=== PATIENT | female | born 2000 | race Caucasian/White ===

== ENCOUNTER 2021-06-29 23:42 | Emergency (ER) | payer BC ==
[~2021-06-29 23:42] MED LIST: ONDA4TAB8 PO
[2021-06-30 01:00] VITALS: BP 91/76
[2021-06-30 01:29] LABS: BILIRUBIN,URINE NEGATIVE (NEGATIVE); CLARITY,URINE SL CLOUDY; COLOR,URINE YELLOW; GLUCOSE, URINE (UA) NEGATIVE (NEGATIVE); KETONES,URINE NEGATIVE (NEGATIVE); LEUKOCYTE ESTERASE ,URINE NEGATIVE (NEGATIVE); NITRITE,URINE NEGATIVE (NEGATIVE); PH,URINE 6.5 (5-9); PROTEIN,URINE NEGATIVE (NEGATIVE)
--- NOTE | 2021-06-30 01:29 | ED General ---
General Chief Complaint: Abdominal/GI Problems Stated Complaint: CHILLS,NAUSEA,DRY HEAVES,CRUZ,WEAKNESS Source of Information: Patient Exam Limitations: No Limitations (MARTIR MCHUGH STUDENT) History of Present Illness Date Seen by Provider: Jun 30, 2021 Time Seen by Provider: 01:00 Initial Comments Pt presents to ED via private conveyance with complaints of intermittent nausea, headache and malaise. She states that she ate some chicken tenders on Tuesday and felt sick afterwards with 1x episode of vomiting. She has been nauseated intermittently since onset but no further episodes of vomiting. She has also been experiencing mild headaches localized to her forehead. She also has had malaise since onset of symptoms. She has been eating/drinking without issue, last bm yesterday described as normal. Denies dysuria/hematuria. Started menstrual cycle yesterday, denies dysmenorrhea/menorrhagia. She states that she does feel like her symptoms have been improving since Tuesday. Denies chest pain, abd pain, SOB, fevers/chills. Timing/Duration: 2-3 Days Severity: Mild Modifying Factors: improves with Medication (zofran for nausea) Associated Systoms: No Chest Pain, No Cough, No Fever/Chills, No Headaches, No Loss of Appetite; Nausea/Vomiting; No Shortness of Air; Weakness (MARTIR MCHUGH STUDENT) Allergies and Home Medications Allergies Coded Allergies: No Known Drug Allergies (Unverified , 12/23/15) Home Medications Ondansetron 4 Mg Tab.rapdis, 4 MG PO Q4H Prescribed by: SUKHWINDER MARIE on 12/23/151922 Ondansetron 4 Mg Tab.rapdis, 4 MG PO Q6H PRN for NAUSEA/VOMITING Prescribed by: ELVA WALTER on 06/30/21 0203 Patient Home Medication List Home Medication List Reviewed: Yes (MARTIR MCHUGH STUDENT) Review of Systems Review of Systems Constitutional: No chills, No fever; malaise, weakness EENTM: No hearing loss, No blurred vision, No vision loss Respiratory: No cough, No short of breath Cardiovascular: No chest pain, No edema, No palpitations Gastrointestinal: No abdominal pain, No constipation, No diarrhea, No dysphagia, No hematemesis; nausea, vomiting Genitourinary: No dysuria, No frequency, No hematuria LMP: Jun 29, 2021 Musculoskeletal: No back pain, No joint pain Skin: No change in color, No change in hair/nails Psychiatric/Neurological: Headache; Denies Numbness, Denies Paresthesia, Denies Tingling (MARTIR MCHUGH) All Other Systems Reviewed Negative Unless Noted: Yes (MARTIR MCHUGH) Past Pgpbueh-Iziqmz-Kjdxrs Hx Patient Social History Tobacco Use?: No Substance use?: No Alcohol Use?: No Pt feels they are or have been: No (MARTIR MCHUGH) Tobacco Use?: No Use of E-Cig and/or Vaping dev: No Substance use?: No Alcohol Use?: No (ELVA WALTER) Seasonal Allergies Seasonal Allergies: No (MARTIR MCHUGH) Past Medical History Surgery/Hospitalization HX: ORAL SX Reproductive Disorders: No (MARTIR MCHUGH) Physical Exam Vital Signs Vital Signs - First Documented 06/30/21 01:00 Temp 36.9 Pulse 81 Resp 16 B/P (MAP) 91/76 (81) Pulse Ox 98 O2 Delivery Room Air (ELVA WALTER) Vital Signs Capillary Refill : (MARTIR MCHUGH) Height, Weight, BMI Height: 5'7" Weight: 106lbs. oz. 48.379266ef; 16.60 BMI Method:Estimated General Appearance: No Apparent Distress, WD/WN Eyes: Bilateral Eye Normal Inspection, Bilateral Eye PERRL, Bilateral Eye EOMI HEENT: PERRL/EOMI, TMs Normal, Normal ENT Inspection, Pharynx Normal Neck: Full Range of Motion, Normal Inspection, Non Tender, Supple Respiratory: Chest Non Tender, Lungs Clear, Normal Breath Sounds, No Accessory Muscle Use, No Respiratory Distress Cardiovascular: Regular Rate, Rhythm, No Edema, No Murmur, Normal Peripheral Pulses Gastrointestinal: Normal Bowel Sounds, Non Tender, Soft Rectal: Deferred Back: Normal Inspection, No CVA Tenderness, No Vertebral Tenderness Extremity: Normal Capillary Refill, Normal Inspection, Normal Range of Motion, Non Tender, No Pedal Edema Neurologic/Psychiatric: Alert, Oriented x3, No Motor/Sensory Deficits, Normal Mood/Affect Skin: Normal Color, Warm/Dry Lymphatic: No Adenopathy (MARTIR MCHUGH) Progress/Results/Core Measures Suspected Sepsis SIRS Temperature: Pulse: Respiratory Rate: Blood Pressure / Mean: (MARTIR MCHUGH MED STUDENT) Results/Orders Lab Results Laboratory Tests Test 06/30/21 01:08 06/30/21 01:22 Range/Units Influenza Type A (RT-PCR) Not Detected Not Detecte Influenza Type B (RT-PCR) Not Detected Not Detecte SARS-CoV-2 RNA (RT-PCR) Not Detected Not Detecte Urine Color YELLOW Urine Clarity SL CLOUDY Urine pH 6.5 5-9 Urine Specific [place] 1.010 L 1.016-1.022 Urine Protein NEGATIVE NEGATIVE Urine Glucose (UA) NEGATIVE NEGATIVE Urine Ketones NEGATIVE NEGATIVE Urine Nitrite NEGATIVE NEGATIVE Urine Bilirubin NEGATIVE NEGATIVE Urine Urobilinogen 0.2 < = 1.0 MG/DL Urine Leukocyte Esterase NEGATIVE NEGATIVE Urine RBC (Auto) NEGATIVE NEGATIVE Urine RBC NONE /HPF Urine WBC NONE /HPF Urine Squamous Epithelial Cells 2-5 /HPF Urine Crystals NONE /LPF Urine Bacteria NEGATIVE /HPF Urine Casts NONE /LPF Urine Mucus NEGATIVE /LPF Urine Culture Indicated NO (ELVA WALTER) My Orders Orders - ELVA WALTER Covid 19 Inhouse Test (06/30/21 01:06) Influenza A And B By Pcr (06/30/21 01:06) Ua Culture If Indicated (06/30/21 01:06) Urine Bedside (06/30/21 01:06) (ELVA WALTER) Vital Signs/I&O 06/30/21 01:00 Temp 36.9 Pulse 81 Resp 16 B/P (MAP) 91/76 (81) Pulse Ox 98 O2 Delivery Room Air (ELVA WALTER) Vital Signs/I&O Capillary Refill : (MARTIR MCHUGH MED STUDENT) Progress Note : Time: 01:59 Progress Note Patient is continued to have no symptoms since she arrived. She has clinically aseptic vital signs and a nonacute abdomen on examination. We discussed doing further work-up with blood work versus just observing her with some nausea medicine. She thinks she ate some bad chicken wings and since her symptoms are progressively getting better this provider agrees that it is reasonable to go home at this time. I attest that I saw this patient alongside the medical student and agree with his documented history, physical exam and review of systems except as otherwise noted. (ELVA WALTER) Departure Impression Primary Impression: Gastroenteritis Disposition: 01 HOME, SELF-CARE Condition: Stable Departure-Patient Inst. Decision time for Depature: 02:00 (ELVA WALTER) Referrals: LOBITO ANAYA MD (PCP/Family) Primary Care Physician Patient Instructions: [id number] Add. Discharge Instructions: You have an upset stomach either from something you ate that was contaminated or a virus. Typically these will resolve over a few days. Zofran 1 tablet every 6 hours as necessary. Return to the ER if you develop a fever especially above 102.5, intractable vomiting, dehydration or severe, intractable pain. Tylenol 1000 mg every 8 hours as necessary for pain. Tums, Rolaids, Maalox etc. as necessary for stomach pain. All discharge instructions reviewed with patient and/or family. Voiced understanding. Scripts Ondansetron (Ondansetron Odt) 4 Mg Tab.rapdis 4 MG PO Q6H PRN for NAUSEA/VOMITING, #8 TAB 0 Refills Prov: ELVA WALTER 06/30/21 Work/School Note: School/Childcare Release Date Seen in the Emergency Department: Jun 30, 2021 Time Dismissed from Emergency Department: 02:03 Return to School: Jul 01, 2021 Restrictions: No Restrictions Other Restrictions Listed Below: Please Excuse 06/29/21. MARTIR MCHUGH MED STUDENT Jun 30, 2021 01:28 ELVA WALTER Jun 30, 2021 02:04
[2021-06-30 01:34] LABS: BACTERIA,URINE NEGATIVE /HPF
[2021-06-30] MEDS ORDERED: ONDA4TAB11 PO (02:03)
== END 2021-06-30 02:10 | disposition home or self-care (01) ==
LOC: EDUNIT# 23:42 → ER 23:50
DX: K52.9 Noninfective gastroenteritis and colitis, unspecified (principal); Z20.822 Contact with and (suspected) exposure to COVID-19
CPT/HCPCS: 81000; 84703; 87636

== ENCOUNTER 2021-08-09 02:50 | Emergency (ER) | payer BC ==
[~2021-08-09] VITALS: Ht 170 cm; Wt 54.4 kg
[~2021-08-09 02:50] MED LIST changes: +ONDA4TAB11 PO
[2021-08-09] MEDS ORDERED: ONDANSETRON 4 MG/2 ML (SDV) Z0FRAN IVP ONE (04:00)
[2021-08-09] MEDS ORDERED: KETOROLAC 30 MG/ML VIAL IVP ONE (04:00)
[2021-08-09] MEDS ORDERED: LACTATED RINGERS 1,000 ML IV ONE ×2 (04:00→07:00)
[2021-08-09 04:13] LABS: BILIRUBIN,URINE NEGATIVE (NEGATIVE); CLARITY,URINE CLEAR; COLOR,URINE YELLOW; GLUCOSE, URINE (UA) NEGATIVE (NEGATIVE); KETONES,URINE 2+ (NEGATIVE); LEUKOCYTE ESTERASE ,URINE NEGATIVE (NEGATIVE); NITRITE,URINE NEGATIVE (NEGATIVE); PROTEIN,URINE NEGATIVE (NEGATIVE)
[2021-08-09 04:25] LABS: BASOPHILS % (AUTO) 1 % (0-10); EOSINOPHILS % (AUTO) 0 % (0-10); HEMATOCRIT 41 % (35-52); HEMOGLOBIN 14.2 g/dL (11.5-16.0); LYMPHOCYTES # (AUTO) 0.3 10^3/uL (1.0-4.0); LYMPHOCYTES % (AUTO) 9 % (12-44); MEAN CORPUSCULAR HEMOGLOBIN 31 pg (25-34); MEAN CORPUSCULAR HGB CONC 34 g/dL (32-36); MEAN CORPUSCULAR VOLUME 89 fL (80-99); MONOCYTES # (AUTO) 0.7 10^3/uL (0.0-1.0); MONOCYTES % (AUTO) 24 % (0-12); NEUTROPHILS % (AUTO) 65 % (42-75); PLATELET COUNT 224 10^3/uL (130-400)
[2021-08-09 04:28] LABS: BACTERIA,URINE NEGATIVE /HPF
[2021-08-09 04:37] LABS: ALBUMIN 4.1 GM/DL (3.2-4.5); POTASSIUM 3.7 MMOL/L (3.6-5.0)
[2021-08-09 04:38] LABS: CALCIUM 9.5 MG/DL (8.5-10.1)
[2021-08-09 04:39] LABS: TOTAL PROTEIN 7.6 GM/DL (6.4-8.2)
[2021-08-09 04:41] LABS: BILIRUBIN,TOTAL 0.3 MG/DL (0.1-1.0)
--- NOTE | 2021-08-09 04:41 | ED Abdominal Pain ---
General Chief Complaint: Abdominal/GI Problems Stated Complaint: ABD PAIN Nursing Triage Note: PT ARRIVED TO ER VIA POV WITH MOTHER FROM HOME. PT REPORTS LOWER ABDOMINAL PAIN IN THE LRQ AT A 5/10 AND DENIES RADIATION SINCE THIS EVENING. Source of Information: Patient, Family (MOM) (SUKHWINDER MARIE DO) History of Present Illness Date Seen by Provider: Aug 09, 2021 Time Seen by Provider: 03:40 Initial Comments PT ARRIVES VIA POV FROM HOME WITH MOTHER C/O RIGHT UPPER QUADRANT PAIN STATES PAIN WOKE HER UP AT 0130 WENT TO BED AROUND 0030 AND FELT FINE NO RADIATION OF PAIN PAIN IS WORSE WITH WALKING OR ANY MOVEMENT + NAUSEA, NO VOMITING HAS HAD CONSTIPATION THE LAST FEW DAYS, BUT DID HAVE A BM EARLIER TODAY NO URINARY SYMPTOMS PT STATES SHE "FELT HOT" EARLIER, BUT DID NOT TAKE TEMP. TOOK IBUPROFEN 200 MG AND THE SENSATION OF FEELING "HOT" WENT AWAY AFTER ABOUT 1 1/2 HOURS PT ALSO TOOK THE IBUPROFEN FOR A HEADACHE, WHICH DID IMPROVE NO IMPROVEMENT IN ABDOMINAL PAIN WITH IBUPROFEN LAST ATE AROUND 1700--HAD PIZZA. NO SICK CONTACTS OR SUSPICIOUS FOODS NO HISTORY OF SIMILAR NO PRIOR GI OR PROBLEMS AND NO ABDOMINAL SURGERIES LMP--BEGAN 08/02/21, ENDED 08/05/21. NORMAL. ON OCP'S PT HAS HAD MODERNA COVID-19 VACCINES X 2--LAST ONE 02/2021 PCP: DR. QUIROS PT IS ALSO A [employer] STUDENT (FRANKSUKHWINDER K ) Allergies and Home Medications Allergies Coded Allergies: No Known Drug Allergies (Unverified , 12/23/15) Patient Home Medication List Home Medication List Reviewed: Yes (ELVA WALTER) Ondansetron (Zofran Odt) 4 Mg Tab.rapdis, 4 MG PO Q4H Prescribed by: SUKHWINDER MARIE on 12/23/151922 Ondansetron (Ondansetron Odt) 4 Mg Tab.rapdis, 4 MG PO Q6H PRN for NAUSEA/VOMITING Prescribed by: ELVA WALTER on 06/30/21 0203 Review of Systems Review of Systems Constitutional: see HPI Respiratory: No Symptoms Reported Cardiovascular: No Symptoms Reported Gastrointestinal: See HPI, Abdominal Pain, Constipated, Nausea; Denies Vomiting Genitourinary: No Symptoms Reported Musculoskeletal: no symptoms reported; No back pain Skin: no symptoms reported Psychiatric/Neurological: See HPI, Headache Endocrine: No Symptoms Reported Hematologic/Lymphatic: No Symptoms Reported (SUKHWINDER MARIE DO) Past Pbfayrx-Prfqzn-Vktgmn Hx Patient Social History Tobacco Use?: No Substance use?: No Alcohol Use?: No (SUKHWINDER MARIE DO) Seasonal Allergies Seasonal Allergies: No (FRANK,SUKHWINDER Henrique THAKUR) Past Medical History Surgery/Hospitalization HX: ORAL SX Surgeries: Yes (ORAL SURGERY) Respiratory: No Cardiac: No Neurological: No : No Last Menstrual Period: Aug 02, 2021 Reproductive Disorders: No Genitourinary: No Gastrointestinal: No Musculoskeletal: No Endocrine: No HEENT: No Cancer: No Psychosocial: No Integumentary: No Blood Disorders: No (SUKHWINDER MARIE DO) Physical Exam Vital Signs Vital Signs - First Documented 08/09/21 03:35 Temp 37.4 Pulse 115 Resp 18 B/P (MAP) 115/81 (92) Pulse Ox 94 O2 Delivery Room Air (ELVA WALTER) Vital Signs Capillary Refill : Less Than 3 Seconds (SUKHWINDER MARIE ) Height/Weight/BMI Height: 5'7" Weight: 106lbs. oz. 48.589545mh; 18.00 BMI Method:Estimated General Appearance: WD/WN, no apparent distress, thin, other (LOOKS U NCOMFORTABLE, HIPS AND KNEES FLEXED AND SPLINTING HER ABDOMEN OVER A BUNDLED UP BLANKET. ) Neck: normal inspection Respiratory: normal breath sounds, no respiratory distress, no accessory muscle use Cardiovascular: regular rate, rhythm, no murmur Gastrointestinal: normal bowel sounds, soft, no organomegaly, no pulsatile mass; No distended; guarding, rebound, tenderness; No hernia, No mass; other (DIFFUSE RIGHT SIDED ABDOMINAL TENDERNESS. EQUIVOCAL REBOUND. + PSOAS, + OBTURATOR, NEGATIVE ROVSING'S, NEGATIVE HEEL TAP. ) Extremities: normal inspection Back: normal inspection, no CVA tenderness Neurologic/Psychiatric: extension course coordinator II-XII nml as tested, no motor/sensory deficits, alert, oriented x 3 Skin: normal color, warm/dry; No rash (FRANKSUKHWINDER Duenas ) Progress/Results/Core Measures Results/Orders Lab Results Laboratory Tests Test 08/09/21 04:06 08/09/21 04:10 Range/Units Urine Color YELLOW Urine Clarity CLEAR Urine pH 7.0 5-9 Urine Specific [place] 1.010 L 1.016-1.022 Urine Protein NEGATIVE NEGATIVE Urine Glucose (UA) NEGATIVE NEGATIVE Urine Ketones 2+ H NEGATIVE Urine Nitrite NEGATIVE NEGATIVE Urine Bilirubin NEGATIVE NEGATIVE Urine Urobilinogen 0.2 < = 1.0 MG/DL Urine Leukocyte Esterase NEGATIVE NEGATIVE Urine RBC (Auto) NEGATIVE NEGATIVE Urine RBC NONE /HPF Urine WBC NONE /HPF Urine Squamous Epithelial Cells 2-5 /HPF Urine Crystals NONE /LPF Urine Bacteria NEGATIVE /HPF Urine Casts NONE /LPF Urine Mucus MODERATE H /LPF Urine Culture Indicated NO White Blood Count 3.0 L 4.3-11.0 10^3/uL Red Blood Count 4.66 3.80-5.11 10^6/uL Hemoglobin 14.2 11.5-16.0 g/dL Hematocrit 41 35-52 % Mean Corpuscular Volume 89 80-99 fL Mean Corpuscular Hemoglobin 31 25-34 pg Mean Corpuscular Hemoglobin Concent 34 32-36 g/dL Red Cell Distribution Width 12.2 10.0-14.5 % Platelet Count 224 130-400 10^3/uL Mean Platelet Volume 10.0 9.0-12.2 fL Immature Granulocyte % (Auto) 0 % Neutrophils (%) (Auto) 65 42-75 % Lymphocytes (%) (Auto) 9 L 12-44 % Monocytes (%) (Auto) 24 H 0-12 % Eosinophils (%) (Auto) 0 0-10 % Basophils (%) (Auto) 1 0-10 % Neutrophils # (Auto) 2.0 1.8-7.8 10^3/uL Lymphocytes # (Auto) 0.3 L 1.0-4.0 10^3/uL Monocytes # (Auto) 0.7 0.0-1.0 10^3/uL Eosinophils # (Auto) 0.0 0.0-0.3 10^3/uL Basophils # (Auto) 0.0 0.0-0.1 10^3/uL Immature Granulocyte # (Auto) 0.0 0.0-0.1 10^3/uL Neutrophils % (Manual) 67 % Lymphocytes % (Manual) 6 % Monocytes % (Manual) 23 % Band Neutrophils 4 % Blood Morphology Comment NORMAL Sodium Level 139 135-145 MMOL/L Potassium Level 3.7 3.6-5.0 MMOL/L Chloride Level 106 98-107 MMOL/L Carbon Dioxide Level 19 L 21-32 MMOL/L Anion Gap 14 5-14 MMOL/L Blood Urea Nitrogen 8 7-18 MG/DL Creatinine 0.82 0.60-1.30 MG/DL Estimat Glomerular Filtration Rate 87 BUN/Creatinine Ratio 10 Glucose Level 105 70-105 MG/DL Calcium Level 9.5 8.5-10.1 MG/DL Corrected Calcium 9.4 8.5-10.1 MG/DL Total Bilirubin 0.3 0.1-1.0 MG/DL Aspartate Amino Transf (AST/SGOT) 20 5-34 U/L Alanine Aminotransferase (ALT/SGPT) 25 0-55 U/L Alkaline Phosphatase 102 40-136 U/L Total Protein 7.6 6.4-8.2 GM/DL Albumin 4.1 3.2-4.5 GM/DL Amylase Level 71 25-125 U/L Lipase 35 8-78 U/L (ELVA WALTER) Medications Given in ED Current Medications Medications Dose Ordered Sig/Alana Route Start Time Stop Time Status Last Admin Dose Admin Lactated Ringer's 1,000 ml @ 0 mls/hr Q0M ONCE IV 08/09/21 07:00 08/09/21 07:01 DC 08/09/21 07:01 999 MLS/HR (ELVA WALTER) Vital Signs/I&O 08/09/21 08/09/21 03:35 10:05 Temp 37.4 Pulse 115 94 Resp 18 18 B/P (MAP) 115/81 (92) 118/85 Pulse Ox 94 97 O2 Delivery Room Air Room Air (ELVA WALTER) Blood Pressure Mean: 92 Progress Progress Note : Progress Note GIVEN IV FLUIDS, TORADOL AND ZOFRAN WITH IMPROVEMENT IN SYMPTOMS CARE TURNED OVER TO DR. WALTER AT SHIFT CHANGE CT PENDING, IF CT IS NEGATIVE, WILL OBTAIN PELVIC ULTRASOUND (SUKHWINDER MARIE DO) Progress Note : Progress Note 0600: Assumed care of the patient at shift change. She is resting comfortably. CT was unable to find pathology. Plan to get ultrasound of the pelvis. (ELVA WALTER) Diagnostic Imaging Diagonstic Imaging: CT Plain Films/CT/US/NM/MRI: abdomen, pelvis Comments [facility] [place] NAME: BRIAN VALVERDE [facility] REC#: [id number] PT STATUS: REG ER : 2000 PHYSICIAN: SUKHWINDER MARIE DO ADMIT DATE: 08/09/21/ER Draft Date of Exam:08/09/21 CT ABD/PELV W (APPENDICITIS) PROCEDURE: CT abdomen and pelvis with contrast, rule out appendicitis. TECHNIQUE: Multiple contiguous axial images were obtained through the abdomen and pelvis after the administration of intravenous contrast. All CT scans use one or more of the following dose optimizing techniques: automated exposure control, MA and/or KvP adjustment based on patient size and exam type or iterative reconstruction. Indication: Right lower quadrant pain. Comparison: None. Discussion: Lung bases are well-aerated. Normal heart size. No pleural or pericardial fluid. The liver, gallbladder, pancreas, stomach, spleen, adrenal glands, kidneys, aorta, bladder, and uterus are unremarkable. Prominent follicular activity noted within the right ovary which is statistically benign though could account for pain. No evidence of appendicitis. Mild constipation. No abnormal small bowel loops. No pneumatosis or pneumoperitoneum. No acute osseous abnormality. Impression: 1. No evidence for appendicitis. 2. Follicular activity noted within the right ovary. If further characterization of this area is required recommend ultrasound. Dictated on workstation # [id number] Dict: 08/09/21627 Trans: 08/09/2138 CV [id number] Interpreted by: RUTH FRANCO MD Electronically signed by: Reviewed: Reviewed by Pr Diagonstic Imaging: Xray Plain Films/CT/US/NM/MRI: abdomen, pelvis Comments [facility] [place] NAME: BRIAN VALVERDE [facility] REC#: [id number] PT STATUS: REG ER : 2000 PHYSICIAN: SUKHWINDER MARIE DO ADMIT DATE: 08/09/21/ER Draft Date of Exam:08/09/21 ABDOMEN/KUB 1VIEW INDICATION: Right lower quadrant abdominal pain. TECHNIQUE: Single supine view of the abdomen 5:08 AM CORRELATION STUDY: None FINDINGS: Imaging of the abdomen demonstrates the bowel gas pattern to be unremarkable and without evidence for obstruction. No significant differential air-fluid levels. No evidence for free air. No pathologic intraabdominal calcifications. IMPRESSION: 1. Unremarkable supine view abdomen. Dictated on workstation # [id number] Dict: 08/09/21627 Trans: 08/09/21628 DO [id number] Interpreted by: MAGNOLIA ALCALA DO Electronically signed by: Reviewed: Reviewed by Me Diagonstic Imaging: Ultrasound Plain Films/CT/US/NM/MRI: abdomen, pelvis Comments [facility] [place] NAME: BRIAN VALVERDE [facility] REC#: [id number] PT STATUS: REG ER : 2000 PHYSICIAN: SUKHWINDER MARIE DO ADMIT DATE: 08/09/21/ER Draft Date of Exam:08/09/21 US PELVIC (NON OB)[id number] PROCEDURE: US PELVIC (NON OB) TECHNIQUE: Multiple real-time grayscale images were obtained over the pelvis in various projections transabdominally. INDICATION: Right lower quadrant pain COMPARISON: CT from the same date FINDINGS: The uterus is within normal limits in size. No focal uterine mass. Endometrium is within normal limits measuring 0.9 cm. The right ovary measures 2.5 x 2.1 x 1.8 cm. The right ovary is grossly unremarkable. Vascular flow seen within the right ovary. The left ovary measures 2.4 x 2.1 x 1.3 cm. Vascular flow seen within the left ovary. A blind-ending tubular structure with a bowel echo signature is present within the right lower quadrant measuring up to 0.3 cm. No adjacent inflammatory changes or fluid. IMPRESSION: Unremarkable examination. What is felt to relate to the appendix within the right lower quadrant appears unremarkable. Dictated on workstation # [id number] Dict: 08/09/21845 Trans: 08/09/21900 CVB [id number] Interpreted by: ESTER PARKS MD Electronically signed by: Reviewed: Reviewed by Me (ELVA WALTER) Departure Impression Primary Impression: Abdominal pain Qualified Codes: R10.9 - Unspecified abdominal pain Disposition: HOME, SELF-CARE Condition: Stable Departure-Patient Inst. Decision time for Depature: 09:46 (ELVA WALTER) Referrals: LOBITO QUIROS MD (PCP/Family) Primary Care Physician HOLLY SIDHU DO Patient Instructions: Abdominal Pain, Adult ED Add. Discharge Instructions: While we could not discover the specific cause of your abdominal pain we also did not discover anything emergent today. I would like you to consider following up with Dr. Sidhu and/or Dr. Quiros if your symptoms persist for the next couple days. Zofran as previously prescribed. Probiotics 1 capsule twice a day for the next couple weeks. Return to the ER promptly if you are having fever above 102.5, intractable vomiting or pain. All discharge instructions reviewed with patient and/or family. Voiced understanding. Copy Copies To 1: HOLLY SIDHU LISA K DO Aug 09, 2021 04:41 ELVA WALTER Aug 09, 2021 07:04
[2021-08-09 04:42] LABS: BAND NEUTROPHILS 4 %; LYMPHOCYTES % (MANUAL) 6 %; MONOCYTES % (MANUAL) 23 %; NEUTROPHILS % (MANUAL) 67 %; RBC MORPH NORMAL
[2021-08-09 04:43] LABS: CREATININE SERUM 0.82 MG/DL (0.60-1.30)
--- NOTE | 2021-08-09 06:30 | Diagnostic Imaging Report ---
INDICATION: Right lower quadrant abdominal pain. TECHNIQUE: Single supine view of the abdomen 5:08 AM CORRELATION STUDY: None FINDINGS: Imaging of the abdomen demonstrates the bowel gas pattern to be unremarkable and without evidence for obstruction. No significant differential air-fluid levels. No evidence for free air. No pathologic intraabdominal calcifications. IMPRESSION: 1. Unremarkable supine view abdomen. Dictated by: Dictated on workstation # [id number]
--- NOTE | 2021-08-09 06:38 | Diagnostic Imaging Report ---
PROCEDURE: CT abdomen and pelvis with contrast, rule out appendicitis. TECHNIQUE: Multiple contiguous axial images were obtained through the abdomen and pelvis after the administration of intravenous contrast. All CT scans use one or more of the following dose optimizing techniques: automated exposure control, MA and/or KvP adjustment based on patient size and exam type or iterative reconstruction. Indication: Right lower quadrant pain. Comparison: None. Discussion: Lung bases are well-aerated. Normal heart size. No pleural or pericardial fluid. The liver, gallbladder, pancreas, stomach, spleen, adrenal glands, kidneys, aorta, bladder, and uterus are unremarkable. Prominent follicular activity noted within the right ovary which is statistically benign though could account for pain. No evidence of appendicitis. Mild constipation. No abnormal small bowel loops. No pneumatosis or pneumoperitoneum. No acute osseous abnormality. Impression: 1. No evidence for appendicitis. 2. Follicular activity noted within the right ovary. If further characterization of this area is required recommend ultrasound. Dictated by: Dictated on workstation # [id number]
--- NOTE | 2021-08-09 09:02 | Diagnostic Imaging Report ---
PROCEDURE: US PELVIC (NON OB) TECHNIQUE: Multiple real-time grayscale images were obtained over the pelvis in various projections transabdominally. INDICATION: Right lower quadrant pain COMPARISON: CT from the same date FINDINGS: The uterus is within normal limits in size. No focal uterine mass. Endometrium is within normal limits measuring 0.9 cm. The right ovary measures 2.5 x 2.1 x 1.8 cm. The right ovary is grossly unremarkable. Vascular flow seen within the right ovary. The left ovary measures 2.4 x 2.1 x 1.3 cm. Vascular flow seen within the left ovary. A blind-ending tubular structure with a bowel echo signature is present within the right lower quadrant measuring up to 0.3 cm. No adjacent inflammatory changes or fluid. IMPRESSION: Unremarkable examination. What is felt to relate to the appendix within the right lower quadrant appears unremarkable. Dictated by: Dictated on workstation # [id number]
[2021-08-09 10:05] VITALS: BP 118/85
== END 2021-08-09 10:05 | disposition home or self-care (01) ==
LOC: EDUNIT# 02:50 → ER 02:51
DX: R10.84 Generalized abdominal pain (principal)
CPT/HCPCS: 36415; 74018; 74177; 76856; 80053; 81000; 82150; 83690; 84703; 85007; 85027